=== PATIENT | male | born 1990 | race Caucasian/White ===

== ENCOUNTER 2017-03-07 17:02 | Emergency (ER) | payer SELFPAY ==
[~2017-03-07] VITALS: Ht 172.7 cm; Wt 81.6 kg
--- NOTE | 2017-03-07 17:10 | Emergency Room Report ---
History of Present Illness General Chief Complaint: Overdose Source: Patient Present Illness HPI Patient is a 26-year-old male brought in by family after increased altered mental status. The patient had been reportedly doing heroine as well as crystal meth. Patient was noted to have decreased responsiveness. History is limited by patient's acuity. He denies any past medical history after awakening after Narcan Allergies: Coded Allergies: No Known Allergies (Unverified , 03/07/17) Patient History Past Medical History: see triage record Past Surgical History: none Reviewed Nursing Documentation: PMH: Agreed, PSxH: Agreed Review of Systems All Other Systems: limited - by ams and poor cooperation after narcan Physical Exam Sp02 EP Interpretation: reviewed, normal General Appearance: severe distress Head: atraumatic Eyes: bilateral eye other - pinpoint pupils ENT: normal ENT inspection, hearing grossly normal, normal voice Neck: normal inspection, full range of motion, supple, no bony tend Respiratory: no respiratory distress, no retraction, other - decreased respirations Cardiovascular #1: regular rate, rhythm, no edema Gastrointestinal: normal inspection, normal bowel sounds, non tender, soft, no guarding, no hernia Genitourinary: no CVA tenderness Musculoskeletal: normal inspection, back normal, normal range of motion Neurologic: normal inspection, alert, oriented x3, responsive, manager hi III-XII nml as tested Psychiatric: normal inspection, judgement/insight normal, mood/affect normal Skin: normal inspection, normal color, no rash Medical Decision Making Diagnostic Impression: Primary Impression: Opiate overdose ER Course Patient presented for altered mental status. Differential diagnosis included but was not limited to ischemic stroke, subarachnoid hemorrhage, hypoglycemia, spinal cord injury, neurodegenerative disorder, urinary tract infection, hypoxemia.Because of complexity of patient's case laboratory testing and imaging studies were ordered.The patient was given Narcan 2 mg IV. The patient was noted to have improvement in his respirations as well as mental status immediately. The patient subsequently awake and alert. He stated he used heroin.Patient was observed in the emergency department was stable throughout stay. .At the time of discharge patient is awake alert oriented and able to ambulate without assistance.The patient not require further doses of Narcan Status: improved Disposition: HOME, SELF-CARE Condition: Stable Scripts Naloxone HCl (Narcan) 4 Mg [place] 4 MG NS ONCE for overdose, #1 SPRAY Prov: Patrice Jackson 03/07/17 Patrice Jackson Mar 07, 2017 17:10
[2017-03-07 17:11] VITALS: BP 134/90
[2017-03-07] MEDS ORDERED: Naloxone 1mg/ml 2ml ONE (17:15)
[2017-03-07] MEDS ORDERED: Haloperidol 5mg/ml Inj IM ONE (17:15)
[2017-03-07] MEDS ORDERED: Naloxone 0.4mg/ml Inj ONE (17:16)
[2017-03-07] MEDS ORDERED: Naloxone 1mg/ml 2ml IVP ONE (17:30)
[2017-03-07 18:15] VITALS: BP 101/73
[2017-03-07] MEDS ORDERED: NARCAN4 MG NS (18:34)
[2017-03-07 19:28] VITALS: BP 108/58
== END 2017-03-07 19:28 | disposition home or self-care (01) ==
LOC: EMR 17:20
DX: T40.601A Poisoning by unspecified narcotics, accidental (unintentional), initial encounter (principal); R41.82 Altered mental status, unspecified
CPT/HCPCS: 96372; 96374; 99284; J1630; J2310

== ENCOUNTER 2018-05-09 23:39 | Emergency (ER) | payer SELFPAY ==
[~2018-05-09] VITALS: Ht 177.8 cm; Wt 81.6 kg
[~2018-05-09 23:39] MED LIST: NARCAN4 MG NS
[2018-05-09] MEDS ORDERED: NKM (23:57)
[2018-05-10] MEDS ORDERED: ZOFRAN4 M1 ORAL (00:08)
[2018-05-10] MEDS ORDERED: CEPHALEXIN500 MG ORAL (00:08)
[2018-05-10 00:14] VITALS: BP 134/81
--- NOTE | 2018-05-10 00:17 | Emergency Room Report ---
History of Present Illness General Chief Complaint: General Complaint Source: Patient Present Illness HPI Patient reports that he was recently released from nursing home Ever since getting out about 3 weeks ago he has been using heroin and amphetamines He reports that there is some redness to the left antecubital fossa Also having headache Denies any chest pain or short of breath Patient reports some increased nausea Denies any diarrhea Denies any fevers denies any neck pain or photophobia Allergies: Coded Allergies: No Known Allergies (Unverified , 03/07/17) Patient History Past Medical History: see triage record Pertinent Family History: none Reviewed Nursing Documentation: PMH: Agreed; PSxH: Agreed Nursing Documentation-PMH Hx Neurological Problems: Yes - hep c Review of Systems All Other Systems: negative except mentioned in HPI Physical Exam Vital Signs Date Time Temp Pulse Resp B/P (MAP) Pulse Ox O2 Delivery O2 Flow Rate FiO2 05/09/18 23:48 97.5 65 18 128/83 100 Room Air Sp02 EP Interpretation: reviewed, normal General Appearance: well appearing, no apparent distress Head: normocephalic, atraumatic Eyes: bilateral eye PERRL, bilateral eye EOMI ENT: hearing grossly normal, normal pharynx, TMs + canals normal, uvula midline Neck: full range of motion, supple, no meningismus, no bony tend Respiratory: lungs clear, normal breath sounds, no rhonchi, no respiratory distress, no retraction, no accessory muscle use Cardiovascular #1: normal peripheral pulses, regular rate, rhythm, no edema, no gallop, no JVD, no murmur Gastrointestinal: normal bowel sounds, non tender, soft, no mass, no organomegaly, non-distended, no guarding, no hernia, no pulsatile mass, no rebound Musculoskeletal: normal inspection Neurologic: oriented x3, responsive, administration specialist III-XII nml as tested, motor strength/ tone normal, sensory intact Psychiatric: mood/affect normal Skin: palpation normal, other - Small erythematous lesion left antecubital fossa, nonfluctuant, no flaring or streaking Lymphatic: normal inspection, no adenopathy Medical Decision Making Diagnostic Impression: Primary Impression: cellulitis ER Course Given the patient's history and exam multiple differentials are initially considered Patient however does not appear septic or toxic Is afebrile hemodynamically appropriate with good heart rate and blood pressure The area in the left arm appears to be fairly well localized small Patient reports extensive drug abuse recently likely having some reaction to this Patient is otherwise clear with appropriate medical screening evaluation For close outpatient follow-up clinics and outpatient referrals are provided Rhythm Strip Diag. Results EP Interpretation: yes Rate: 60 Rhythm: NSR, no PVC's, no ectopy Last Vital Signs Date Time Temp Pulse Resp B/P (MAP) Pulse Ox O2 Delivery O2 Flow Rate FiO2 05/09/18 23:48 97.5 65 18 128/83 100 Room Air Status: unchanged Disposition: HOME, SELF-CARE Condition: Stable Scripts Ondansetron (Zofran) 4 Mg Tablet 4 MG ORAL Q6H PRN for Nausea & Vomiting, #12 TAB Prov: Shital Ambriz DO 05/10/18 Cephalexin* (KEFLEX*) 500 Mg Capsule 500 MG ORAL EVERY 6 HOURS for 10 Days, CAP Prov: Shital Ambriz DO 05/10/18 Referrals: [facility] + [facility] Psych ER - Peds ER - Patient Instructions: Stimulant Use Disorder-Amphetamines, Cellulitis, Easy-to- Read, Finding Treatment for Addiction Additional Instructions: Patient is provided with the discharge instructions notified to follow up with primary doctor in the next 2-3 days otherwise return to the er with any worsening symptoms. Please note that this report is being documented using [employer] technology. This can lead to erroneous entry secondary to incorrect interpretation by the dictating instrument. Shital Ambriz DO May 10, 2018 00:17
[2018-05-10 00:21] VITALS: BP 134/81
== END 2018-05-10 00:12 | disposition home or self-care (01) ==
LOC: EMR 23:50
DX: L03.114 Cellulitis of left upper limb (principal); F14.90 Cocaine use, unspecified, uncomplicated; F11.90 Opioid use, unspecified, uncomplicated; B19.20 Unspecified viral hepatitis C without hepatic coma
CPT/HCPCS: 99282